=== PATIENT | female | born 2000 | race Caucasian/White ===

== ENCOUNTER 2023-04-24 12:14 | Emergency (ER) | payer SELFPAY ==
[2023-04-24 12:19] VITALS: BP 125/77; PULSE 61; RESP 16; TEMP 36.2; O2SAT 100
--- NOTE | 2023-04-24 13:43 | PC.NURSE ---
Pt to desk. Pt states I'm sorry I am going to go ahead and try to go somewhere else. Pt walked out with steady gait.
== END 2023-04-24 13:43 | disposition left against medical advice (07) ==
DX: R42 Dizziness and giddiness (principal)
CPT/HCPCS: 99199